=== PATIENT | male | born 1990 | race African-American/Black ===

== ENCOUNTER 2018-09-10 10:29 | Emergency (ER) | payer OTHER ==
[~2018-09-10] VITALS: Ht 188 cm; Wt 69.8 kg
[2018-09-10] MEDS ORDERED: IBUPROFEN 600600 M1 PO (11:09)
[2018-09-10 11:20] VITALS: BP 135/82
== END 2018-09-10 11:20 | disposition home or self-care (01) ==
LOC: M.ERS 10:29
DX: S63.501A Unspecified sprain of right wrist, initial encounter (principal); W22.8XXA Striking against or struck by other objects, initial encounter; Y93.89 Activity, other specified; Y92.89 Other specified places as the place of occurrence of the external cause; Y99.8 Other external cause status